=== PATIENT | female | born 1950 | race Caucasian/White ===

== ENCOUNTER 2016-09-23 20:35 | Emergency (ER) | payer MEDICARE, MEDICAID ==
[~2016-09-23 20:35] MED LIST: APRI0.372 PO; ASPI81CH CHEW; GABA600T PO; LISI-519 PO; LORA-392 PO; MELA1TAB18 PO; MELO-1 PO; METF500T PO; METO50TA PO; MULTTAB67 PO; OMEGCAP PO; OMEP10CA PO; PRAV40TA2 PO; PREG25 PO; TRAM50TA PO; TRAZ50TA12 PO; VENTAER INH; ZOLO50TA PO
[2016-09-23 20:42] VITALS: BP 137/73; PULSE 64; RESP 18; TEMP 98.1; O2SAT 94
--- NOTE | 2016-09-23 21:19 | PD ---
HPI Chief Complaint: Psychiatric Symptoms Time Seen by Provider: 21:07 Travel History International Travel<30 days: No Contact w/Intl Traveler<30days: No Traveled to known affect area: No History of Present Illness HPI 66-year-old female was Deleon acted and brought in to [facility] for psychiatric evaluation. Patient states that she has been depressed and voicing suicidal ideation. Patient was medically cleared for psychiatric evaluation and transfer to [place] to see psychiatrist. Patient has history hypertension, diabetes, hyperlipidemia. Patient status post CVA with left-sided weakness. PFSH Past Medical History Asthma: Yes Anxiety: Yes Depression: Yes Cardiovascular Problems: Yes (CAD, HTN) High Cholesterol: Yes COPD: Yes Cerebrovascular Accident: Yes (LEFT SIDE WEAKNESS) Coronary Artery Disease: Yes Diabetes: Yes Patient Takes Glucophage: Yes Tetanus Vaccination: Unknown Influenza Vaccination: No Menopausal: Yes Tubal Ligation: Yes Past Surgical History Cholecystectomy: Yes Neurologic Surgery: Yes (ENDARTECTOMY) Social History Alcohol Use: No Tobacco Use: No Substance Use: No Allergies-Medications (Allergen,Severity, Reaction): Coded Allergies: Sulfa (Verified Allergy, Severe, Swelling, 09/23/16) Tetanus Toxoid (Verified Allergy, Severe, Swelling, 09/23/16) Reported Meds & Prescriptions Reported Meds & Active Scripts Active Reported Trazodone (Trazodone HCl) 50 Mg Tab 50 Mg PO HS Ventolin Hfa 18 GM Inh (Albuterol Sulfate) 90 Mcg/Act Aer 2 Puff INH Q4-6H PRN Tramadol (Tramadol HCl) 50 Mg Tab 50 Mg PO Q6H PRN Apriso (Mesalamine) 0.375 Gm Caper 1.5 Gm PO DAILY Melatonin 10 Mg Tab 10 Mg PO HS PRN Gabapentin 600 Mg Tab 600 Mg PO TID [place]-3 Fish Oil/Vitamin (Fish Oil-Cholecalciferol) 1,000-1,000 Mg Cap 1 Cap PO DAILY Omeprazole 10 Mg Cap 30 Mg PO DAILY Ativan (Lorazepam) 0.5 Mg Tab 0.5 Mg PO BID Metoprolol Tartrate 50 Mg Tab 50 Mg PO BID Meloxicam 15 Mg Tab 15 Mg PO DAILY Metformin (Metformin HCl) 500 Mg Tab 500 Mg PO TIDPC With meals Pravastatin 40 Mg Tab 40 Mg PO DAILY Zoloft (Sertraline HCl) 50 Mg Tab 50 Mg PO BID Aspirin 81 Mg Chew 81 Mg CHEW DAILY Multiple Vitamin 1 Tab 1 Tab PO DAILY Lisinopril 5 Mg Tab 5 Mg PO DAILY Lyrica (Pregabalin) 25 Mg Cap 25 Mg PO BID Review of Systems General / Constitutional: No: Fever Eyes: No: Visual changes HENT: No: Headaches Cardiovascular: No: Chest Pain or Discomfort Respiratory: No: Shortness of Breath Gastrointestinal: No: Abdominal Pain Genitourinary: No: Dysuria Musculoskeletal: No: Pain Skin: No Rash Neurologic: No: Weakness Psychiatric: No: Depression Endocrine: No: Polydipsia Hematologic/Lymphatic: No: Easy Bruising Physical Exam Narrative GENERAL: Well-nourished, well-developed patient. SKIN: Focused skin assessment warm/dry. HEAD: Normocephalic. EYES: No scleral icterus. No injection or drainage. NECK: Supple, trachea midline. No JVD or lymphadenopathy. CARDIOVASCULAR: Regular rate and rhythm without murmurs, gallops, or rubs. RESPIRATORY: Breath sounds equal bilaterally. No accessory muscle use. GASTROINTESTINAL: Abdomen soft, non-tender, nondistended. MUSCULOSKELETAL: No cyanosis, or edema. BACK: Nontender without obvious deformity. No CVA tenderness. Neurologic exam: Patient has left-sided paralysis of the upper extremity with weakness of the left leg. Data Data Last Documented VS Vital Signs Date Time Temp Pulse Resp B/P Pulse Ox O2 Delivery O2 Flow Rate FiO2 09/23/16 20:42 98.1 64 18 137/73 94 Orders Psych Screen (09/23/16 22:27) [facility] Medical Decision Making Medical Screen Exam Complete: Yes Emergency Medical Condition: Yes Differential Diagnosis Differential diagnosis including depression, suicidal. Narrative Course Patient was Deleon acted or depression and voicing suicidal ideation and awaiting psychiatric evaluation. Patient is medically cleared. John Vásquez MD Sep 23, 2016 21:19
[2016-09-24 07:30] VITALS: BP 130/59; PULSE 77; RESP 16; O2SAT 97
[2016-09-24] MEDS ORDERED: MELOXICAM 7.5 MG TAB PO ONE (07:45)
[2016-09-24] MEDS ORDERED: traMADol HCL 50 MG TAB PO ONE (07:45)
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
[2016-09-24] MEDS ORDERED: LISINOPRIL 5 MG TAB PO ONE (11:15)
[2016-09-24] MEDS ORDERED: PREGABALIN 25 MG CAP PO ONE (11:15)
[2016-09-24] MEDS ORDERED: SERTRALINE HCL 50 MG TAB PO ONE (11:15)
[2016-09-24] MEDS ORDERED: METOPROLOL TARTRATE 25 MG TAB PO ONE (11:15)
[2016-09-24] MEDS ORDERED: GABAPENTIN 300 MG CAP PO ONE (11:15)
[2016-09-24] MEDS ORDERED: LORazepam 0.5 MG TAB PO ONE (11:15)
[2016-09-24 11:20] VITALS: BP 140/70; PULSE 77; RESP 16; O2SAT 97
== END 2016-09-24 15:26 | disposition home or self-care (01) ==
LOC: NEPD 20:35
DX: F43.25 Adjustment disorder with mixed disturbance of emotions and conduct (principal); I69.354 Hemiplegia and hemiparesis following cerebral infarction affecting left non-dominant side; I25.10 Atherosclerotic heart disease of native coronary artery without angina pectoris; E78.5 Hyperlipidemia, unspecified; E11.9 Type 2 diabetes mellitus without complications; Z79.84 Long term (current) use of oral hypoglycemic drugs; Z79.899 Other long term (current) drug therapy
CPT/HCPCS: 80053; 81001; 84443; 84484; 85025; 87086; 99284; 99285

== ENCOUNTER 2017-01-29 15:03 | Inpatient (IN) | payer OTHER, MEDICAID, MEDICARE ==
[~2017-01-29] VITALS: Ht 154.9 cm; Wt 52.3 kg
[~2017-01-29 15:03] MED LIST changes: +ASPI-516 CHEW; -ASPI81CH CHEW; -MELO-1 PO; +MELO15TA20 PO
[2017-01-29 15:27] VITALS: BP 145/85; PULSE 81; RESP 16; TEMP 97.9; O2SAT 97
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
[2017-01-29 17:28] LABS: AUTOMATED NEUTROPHIL # 2.3 TH/MM3 (1.8-7.7); BASOPHIL % 0.4 % (0.0-2.0); EOSINOPHIL # 0.1 TH/MM3 (0-0.4); EOSINOPHIL % 2.5 % (0.0-4.0); HEMATOCRIT 38.2 % (35.0-46.0); HEMO FLAGS DIFF FINAL; LYMPH % 21.1 % (9.0-44.0); LYMPHOCYTE # 0.8 TH/MM3 (1.0-4.8); MEAN CELL VOLUME 86.4 FL (80.0-100.0); MEAN CORPUSCULAR HEMOGLOBIN 27.4 PG (27.0-34.0); MEAN CORPUSCULAR HGB CONC 31.7 % (32.0-36.0); MONO % 10.9 % (0.0-8.0); NEUT % 65.1 % (16.0-70.0); PLATELET COUNT 164 TH/MM3 (150-450); RED BLOOD COUNT 4.42 MIL/MM3 (4.00-5.30); RED CELL DISTRIBUTION WIDTH 16.9 % (11.6-17.2); WHITE BLOOD COUNT 3.6 TH/MM3 (4.0-11.0)
[2017-01-29 17:45] LABS: ANION GAP 6 MEQ/L (5-15); AST (GOT) 22 U/L (15-37); BICARBONATE 26.3 MEQ/L (21.0-32.0); BLOOD UREA NITROGEN 9 MG/DL (7-18); CHLORIDE 108 MEQ/L (98-107); GLOMERULAR FILTRATION RATE 89 ML/MIN (>89); POTASSIUM 3.8 MEQ/L (3.5-5.1); SODIUM (NA) 140 MEQ/L (136-145)
[2017-01-29 17:48] LABS: ACETAMINOPHEN LESS THAN 2.0 MCG/ML (10.0-30.0); ALKALINE PHOSPHATASE 72 U/L (45-117); ALT (GPT) 23 U/L (10-53); TOTAL BILIRUBIN ADULT 0.3 MG/DL (0.2-1.0)
[2017-01-29 17:50] LABS: ALCOHOL LESS THAN 3 MG/DL (0-5)
[2017-01-29 19:00] VITALS: BP_SYST 149; BP_DIAS 61; BP_DIAS 78; PULSE 78; RESP 18; TEMP 97.8; O2SAT 97
[2017-01-29] MEDS ORDERED: DULO1CAP PO (20:37)
[2017-01-29] MEDS ORDERED: BUPR100T4 PO (20:37)
[2017-01-29] MEDS ORDERED: OMEP40CA2 PO (20:37)
[2017-01-29] MEDS ORDERED: HYDR-3516 PO (21:31)
[2017-01-29] MEDS ORDERED: diphenhydrAMINE HCL 50 MG CAP PO ONE (22:15)
[2017-01-29] MEDS ORDERED: NAPROXEN 375 MG TAB PO ONE (22:15)
[2017-01-29 22:29] VITALS: BP 101/69; PULSE 77; RESP 18; O2SAT 98
[2017-01-30 06:09] VITALS: BP 125/60; PULSE 64; RESP 18; O2SAT 98
[2017-01-30] MEDS ORDERED: ACETAMINOPHEN 325 MG TAB PO PRN (10:15)
[2017-01-30] MEDS ORDERED: LORazepam 2 MG/ML VIAL IM PRN (10:15)
[2017-01-30] MEDS ORDERED: ALUMINUM/MAGNESIUM/SIMETH 30 ML CUP PO PRN (10:15)
[2017-01-30] MEDS ORDERED: MAGNESIUM HYDROXIDE SUSP 30 ML CUP PO PRN (10:15)
[2017-01-30] MEDS ORDERED: ALBUTEROL SULFATE 90 MCG/ACT HFA 8 GM INHALER INH PRN (10:30)
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
[2017-01-30 11:07] VITALS: BP 113/67; PULSE 82; RESP 18; O2SAT 97
[2017-01-30] MEDS: GABAPENTIN 300 MG CAP PO SCH ×2 (13:00→18:00)
[2017-01-30] MEDS: metFORMIN HCL 500 MG TAB PO SCH ×2 (13:30→18:04)
[2017-01-30] MEDS: LORazepam 1 MG TAB PO PRN ×2 (14:22→20:48)
[2017-01-30 15:09] VITALS: BP 150/65; PULSE 76; RESP 16; O2SAT 97
--- NOTE | 2017-01-30 15:17 | PD.CONS ---
[facility] Request[facility] By [facility] Care Physician Unknown Diagnoses: History of Present Illness History from patient, nursing staff, and review of medical records. Patient is a very pleasant lady who is aware of her medical conditions. However she stated most of the time, her daughter gives her medications. She is not aware of the names and doses of her medications. She is admitted to psychiatry service. With multiple family dynamics and DCF is being involved per nursing staff. had nausea stomach ache mid abdomen when i got to eat, it hurts, and i dont want to eat lost about 40lbs had these pains for about 6 months havent gotten to pcp anymore- Dr Perdomo - because has had trouble getting around to doc appointment and now see [employer] from home doc had colonoscopy about 6 yrs ago, and was normal except for colitis no acid refulx never had egd left side paralysis of "wherever my saliva go down" and reports of choking episodes from saliva or food no black or red stool, no change in caliber of stool c/o of left sided pains- stated chronic usually if she sits too long in wheel chair was in ER too long and pain started worsening falls al lot last fall was about 3 weeks ago broke ankle on right side then- but did not require surgery- was told hairline fx Review of Systems Except as stated in HPI: all other systems reviewed are Neg Past Family Social History Allergies: Coded Allergies: Sulfa (Sulfonamide Antibiotics) (Verified Allergy, Severe, Swelling, 01/29) tetanus toxoid, adsorbed (Verified Allergy, Severe, Swelling, 01/29/17) Past Medical History htn dm asthma as a child overactive bladder 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 , 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 hx of colitis- had colonoscopy at [facility] previously Past Surgical History cholecystectomy- about 6 yrs ago carpel tunnel x 3 tubal ligation - 38yrs ago Family History alziemers dementia- mother and her brother manic depressive- mother Social History quit smoking 6yrs ago no etoh abuse no drugs lives with daughter- and her boyfriend and kids Physical Exam Vital Signs Vital Signs Date Time Temp Pulse Resp B/P (MAP) Pulse Ox O2 Delivery O2 Flow Rate FiO2 01/30/17 12:52 01/30/17 11:07 82 18 113/67 (82) 97 Room Air 01/30/17 06:09 64 18 125/60 (81) 98 Room Air 01/29/17 22:29 77 18 101/69 (80) 98 01/29/17 19:00 97.8 78 18 149/61 (90) 97 Room Air 01/29/17 15:27 97.9 81 16 145/85 (105) 97 Physical Exam GENERAL: This is a well-nourished, well-developed patient, in no apparent distress. Complaining of pain in her left upper extremity SKIN: No rashes, ecchymoses or lesions. Cool and dry. HEAD: Atraumatic. Normocephalic. No temporal or scalp tenderness. EYES: No scleral icterus. No injection or drainage. ENT: Nose without bleeding, purulent drainage or septal hematoma. Airway patent. NECK: Trachea midline. No JVDSupple, nontender, no meningeal signs. CARDIOVASCULAR: Regular rate and rhythm without murmurs, gallops, or rubs. RESPIRATORY: Clear to auscultation. Breath sounds equal bilaterally. No wheezes , rales, or rhonchi. GASTROINTESTINAL: Abdomen soft, non-tender, nondistended. No guarding. MUSCULOSKELETAL: Extremities without clubbing, cyanosis, or edema. No calf tenderness. NEUROLOGICAL: Awake and alert. Left upper extremity and left lower extremity contracture. Our about 1 out of 5. Normal speech. Laboratory Laboratory Tests Test 01/29/17 16:30 White Blood Count 3.6 Red Blood Count 4.42 Hemoglobin 12.1 Hematocrit 38.2 Mean Corpuscular Volume 86.4 Mean Corpuscular Hemoglobin 27.4 Mean Corpuscular Hemoglobin Concent 31.7 Red Cell Distribution Width 16.9 Platelet Count 164 Mean Platelet Volume 9.3 Neutrophils (%) (Auto) 65.1 Lymphocytes (%) (Auto) 21.1 Monocytes (%) (Auto) 10.9 Eosinophils (%) (Auto) 2.5 Basophils (%) (Auto) 0.4 Neutrophils # (Auto) 2.3 Lymphocytes # (Auto) 0.8 Monocytes # (Auto) 0.4 Eosinophils # (Auto) 0.1 Basophils # (Auto) 0.0 CBC Comment DIFF FINAL Differential Comment Blood Urea Nitrogen 9 Creatinine 0.66 Random Glucose 80 Total Protein 6.9 Albumin 3.4 Calcium Level 8.8 Alkaline Phosphatase 72 Aspartate Amino Transf (AST/SGOT) 22 Alanine Aminotransferase (ALT/SGPT) 23 Total Bilirubin 0.3 Sodium Level 140 Potassium Level 3.8 Chloride Level 108 Carbon Dioxide Level 26.3 Anion Gap 6 Estimat Glomerular Filtration Rate 89 Salicylates Level LESS THAN 1.7 Urine Opiates Screen NEG Acetaminophen Level LESS THAN 2.0 Urine Barbiturates Screen NEG Urine Amphetamines Screen NEG Urine Benzodiazepines Screen POS Urine Cocaine Screen NEG Urine Cannabinoids Screen NEG Ethyl Alcohol Level LESS THAN 3 Result Diagram: 01/29/17 1630 01/29/17 1630 Assessment and Plan Assessment and Plan Impression: depression . Management per psychiatry. Multiple family dynamics with DCF involvement. possible esophageal strictures from history . However patient is quite upset at present with family dynamics and unclear whether her symptoms are related to this. Will need to question her again on this. 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 At present, patient is quite upset from family dynamics and her left shoulder and lower extremity pain because she was not receiving any adequate pain meds while in ER. She does follow up with Home Docs and has a PA who comes to her house. She is also recommended to follow up with urology as an outpatient for urodynamic studies. Will not start any medications since patient has multiple medications on her list. Case management for possible [facility] placement. Patient has multiple family issues and DCF is involved. Home meds have been resumed DVT prophylaxis with Lovenox. Discharge Planning per psychiatry Discussed Condition With Patient, nursing staff Josephine Arguello MD Jan 30, 2017 15:17
[2017-01-30] MEDS ORDERED: DEXTROSE 50% IN WATER 50 ML VIAL(D50) IV PUSH PRN (15:30)
[2017-01-30] MEDS ORDERED: GLUCAGON 1 MG/ML VIAL OTHER PRN (15:30)
[2017-01-30] MEDS: ACETAMINOPHEN/HYDROcodone 325 MG/5 MG TAB PO PRN (15:41)
[2017-01-30] MEDS: INSULIN ASPART SUPPLEMENTAL SCALE SQ SCH ×2 (17:00→20:48)
[2017-01-30] MEDS: MESALAMINE HD 800 MG DELAYED RELEASE TAB PO SCH (18:00)
[2017-01-30] MEDS: METOPROLOL TARTRATE 50 MG TAB PO SCH (20:48)
[2017-01-30] MEDS: traZODone HCL 50 MG TAB PO PRN (20:48)
[2017-01-31 06:25] VITALS: BP 118/66; PULSE 67; RESP 16; TEMP 97.5; O2SAT 94
[2017-01-31] MEDS: INSULIN ASPART SUPPLEMENTAL SCALE SQ SCH ×4 (08:00→21:00)
[2017-01-31] MEDS: ASPIRIN 81 MG CHEW TAB CHEW SCH (08:12)
[2017-01-31] MEDS: MELOXICAM 15 MG TAB PO SCH (08:12)
[2017-01-31] MEDS: PANTOPRAZOLE SOD 40 MG DELAYED RELEASE TAB PO SCH (08:12)
[2017-01-31] MEDS: GABAPENTIN 300 MG CAP PO SCH ×3 (08:12→18:23)
[2017-01-31] MEDS: LISINOPRIL 5 MG TAB PO SCH (08:12)
[2017-01-31] MEDS: DULoxetine HCl DR 20 MG CAP PO SCH (08:12)
[2017-01-31] MEDS: METOPROLOL TARTRATE 50 MG TAB PO SCH ×2 (08:12→21:14)
[2017-01-31] MEDS: PRAVASTATIN SOD 40 MG TAB PO SCH (08:12)
[2017-01-31] MEDS: metFORMIN HCL 500 MG TAB PO SCH ×3 (08:12→18:23)
[2017-01-31] MEDS: MULTIVITAMIN TAB PO SCH (08:12)
[2017-01-31] MEDS: traMADol HCL 50 MG TAB PO PRN ×3 (08:13→21:13)
[2017-01-31] MEDS: MESALAMINE HD 800 MG DELAYED RELEASE TAB PO SCH ×3 (08:13→18:00)
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
[2017-01-31 11:04] LABS: BLOOD, URINE NEG (NEG); GLUCOSE,URINE NEG (NEG); KETONE, URINE NEG (NEG); NITRITE,URINE NEG (NEG); URINE COLOR YELLOW (YELLW/STRAW)
[2017-01-31 11:07] LABS: COMMENT (UR) CULT NOT INDICATED; CULTURE IF INDICATED CULT NOT INDICATED
[2017-01-31 11:22] LABS: AUTOMATED NEUTROPHIL # 1.2 TH/MM3 (1.8-7.7); BASOPHIL % 0.4 % (0.0-2.0); EOSINOPHIL # 0.1 TH/MM3 (0-0.4); EOSINOPHIL % 4.5 % (0.0-4.0); HEMATOCRIT 36.8 % (35.0-46.0); HEMO FLAGS DIFF FINAL; LYMPHOCYTE # 0.6 TH/MM3 (1.0-4.8); MEAN CELL VOLUME 83.6 FL (80.0-100.0); MEAN CORPUSCULAR HEMOGLOBIN 26.6 PG (27.0-34.0); MEAN CORPUSCULAR HGB CONC 31.8 % (32.0-36.0); MONO % 11.7 % (0.0-8.0); NEUT % 56.4 % (16.0-70.0); PLATELET COUNT 156 TH/MM3 (150-450); RED CELL DISTRIBUTION WIDTH 16.6 % (11.6-17.2); WHITE BLOOD COUNT 2.1 TH/MM3 (4.0-11.0)
[2017-01-31 11:33] LABS: ANION GAP 8 MEQ/L (5-15); BICARBONATE 29.4 MEQ/L (21.0-32.0); BLOOD UREA NITROGEN 12 MG/DL (7-18); CHLORIDE 108 MEQ/L (98-107); POTASSIUM 4.1 MEQ/L (3.5-5.1); SODIUM (NA) 145 MEQ/L (136-145)
[2017-01-31 11:59] LABS: ALKALINE PHOSPHATASE 64 U/L (45-117); ALT (GPT) 20 U/L (10-53); AST (GOT) 20 U/L (15-37); GLOMERULAR FILTRATION RATE 75 ML/MIN (>89); HDL CHOLESTEROL 40.7 MG/DL (40.0-60.0); LDL CHOLESTEROL 32 MG/DL (0-99); TOTAL BILIRUBIN ADULT 0.2 MG/DL (0.2-1.0)
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
--- NOTE | 2017-01-31 13:37 | EKG ---
Date Performed: 01/31/2017 Time Performed: 07:20:13 PTAGE: 66 years EKG: Sinus rhythm LOW QRS VOLTAGE IN PRECORDIAL LEADS INFERIOR MYOCARDIAL INFARCTION , PROBABLY OLD ABNORMAL ECG NO PREVIOUS TRACING DOCTOR: Tavares Rubio Interpretating Date/Time 01/31/2017 13:36:04
[2017-01-31 14:36] LABS: HEMOGLOBIN A1a 1.5 %; HEMOGLOBIN Ao 84.7 %; HEMOGLOBIN LA1C 2.2 %; HEMOGLOBIN P3 3.6 %
[2017-01-31 18:37] VITALS: BP 130/64; PULSE 74; RESP 16; TEMP 97.2; O2SAT 97
[2017-01-31] MEDS: traZODone HCL 50 MG TAB PO PRN (21:13)
[2017-01-31] MEDS: LORazepam 1 MG TAB PO PRN (21:14)
[2017-02-01 05:44] VITALS: BP 121/59; PULSE 64; RESP 16; TEMP 97.6; O2SAT 97
[2017-02-01] MEDS: INSULIN ASPART SUPPLEMENTAL SCALE SQ SCH ×4 (08:00→21:00)
[2017-02-01] MEDS: ASPIRIN 81 MG CHEW TAB CHEW SCH (08:15)
[2017-02-01] MEDS: ENOXAPARIN SODIUM 40 MG/0.4 ML SYRINGE SQ SCH (08:16)
[2017-02-01] MEDS: LISINOPRIL 5 MG TAB PO SCH (08:16)
[2017-02-01] MEDS: METOPROLOL TARTRATE 50 MG TAB PO SCH ×2 (08:16→21:23)
[2017-02-01] MEDS: GABAPENTIN 300 MG CAP PO SCH ×3 (08:16→17:39)
[2017-02-01] MEDS: PANTOPRAZOLE SOD 40 MG DELAYED RELEASE TAB PO SCH (08:16)
[2017-02-01] MEDS: MELOXICAM 15 MG TAB PO SCH (08:16)
[2017-02-01] MEDS: PRAVASTATIN SOD 40 MG TAB PO SCH (08:17)
[2017-02-01] MEDS: MULTIVITAMIN TAB PO SCH (08:17)
[2017-02-01] MEDS: DULoxetine HCl DR 20 MG CAP PO SCH (08:17)
[2017-02-01] MEDS: MESALAMINE HD 800 MG DELAYED RELEASE TAB PO SCH ×3 (08:17→17:40)
[2017-02-01] MEDS: metFORMIN HCL 500 MG TAB PO SCH ×3 (08:19→17:40)
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
--- NOTE | 2017-02-01 10:28 | HHI.PYPN ---
Subjective Remarks Patient seen for follow-up, chart reviewed. Discussion nursing staff reported the patient would be slightly tearful this morning. Patient found lying in hospital bed, cooperative but also noted to be tearful throughout interview today. Patient states that she is feeling "tired" continues to report feeling depressed with no having thoughts of hurting herself or thoughts of suicide. She states that she is feeling very worried and stressed that returning to live with her daughter is stressful environment stating that "she is mean to me". Patient states that she has just in use to have ruminations about her stressors , continues to have decreased appetite and concentration. Patient states that she will try to attended group today to distract herself from her stressors. Review of Systems Except as stated in HPI: all other systems reviewed are Neg Mental Status Examination Appearance: Appropriate Consciousness: Alert Orientation: x4 Motor Activity: Other Speech: Unremarkable Language: Adequate Fund of Knowledge: Adequate Attention and Concentration: Easily Distracted Memory: Unremarkable Mood: Angry, Sad Affect: Sad, Other (tearful throughout interview) Thought Process & Associations: Intact, Linear Thought Content: Appropriate Hallucination Type: None Delusion Type: None Suicidal Ideation: Yes Suicidal Plan: No Suicidal Intention: No Homicidal Ideation: No Homicidal Plan: No Homicidal Intention: No Insight: Fair Judgment: Impulsive Results Labs Labs reviewed Test 01/31/17 10:42 01/31/17 10:56 Urine Color YELLOW Urine Turbidity CLEAR Urine pH 6.0 Urine Specific [place] 1.014 Urine Protein NEG mg/dL Urine Glucose (UA) NEG mg/dL Urine Ketones NEG mg/dL Urine Occult Blood NEG Urine Nitrite NEG Urine Bilirubin NEG Urine Urobilinogen LESS THAN 2.0 MG/DL Urine Leukocyte Esterase NEG Microscopic Urinalysis Comment CULT NOT INDICATED White Blood Count 2.1 TH/MM3 Red Blood Count 4.40 MIL/MM3 Hemoglobin 11.7 GM/DL Hematocrit 36.8 % Mean Corpuscular Volume 83.6 FL Mean Corpuscular Hemoglobin 26.6 PG Mean Corpuscular Hemoglobin Concent 31.8 % Red Cell Distribution Width 16.6 % Platelet Count 156 TH/MM3 Mean Platelet Volume 9.0 FL Neutrophils (%) (Auto) 56.4 % Lymphocytes (%) (Auto) 27.0 % Monocytes (%) (Auto) 11.7 % Eosinophils (%) (Auto) 4.5 % Basophils (%) (Auto) 0.4 % Neutrophils # (Auto) 1.2 TH/MM3 Lymphocytes # (Auto) 0.6 TH/MM3 Monocytes # (Auto) 0.2 TH/MM3 Eosinophils # (Auto) 0.1 TH/MM3 Basophils # (Auto) 0.0 TH/MM3 CBC Comment DIFF FINAL Differential Comment Blood Urea Nitrogen 12 MG/DL Creatinine 0.77 MG/DL Random Glucose 77 MG/DL Total Protein 6.6 GM/DL Albumin 3.2 GM/DL Calcium Level 8.7 MG/DL Alkaline Phosphatase 64 U/L Aspartate Amino Transf (AST/SGOT) 20 U/L Alanine Aminotransferase (ALT/SGPT) 20 U/L Total Bilirubin 0.2 MG/DL Sodium Level 145 MEQ/L Potassium Level 4.1 MEQ/L Chloride Level 108 MEQ/L Carbon Dioxide Level 29.4 MEQ/L Anion Gap 8 MEQ/L Estimat Glomerular Filtration Rate 75 ML/MIN Hemoglobin A1c 5.6 % Triglycerides Level 83 MG/DL Cholesterol Level 89 MG/DL LDL Cholesterol 32 MG/DL HDL Cholesterol 40.7 MG/DL Cholesterol/HDL Ratio 2.18 RATIO Vitamin B12 Level 517 PG/ML 25-Hydroxy Vitamin D Total 26.4 ng/ML Thyroid Stimulating Hormone 3rd Gen 0.840 uIU/ML Vitals/IOs Vital Signs Date Time Temp Pulse Resp B/P (MAP) Pulse Ox O2 Delivery O2 Flow Rate FiO2 02/01/17 05:44 97.6 64 16 121/59 (79) 97 01/30/17 11:07 Room Air Intake and Output 02/01/17 02/01/17 02/02/17 08:00 16:00 00:00 Intake Total 540 ml Balance 540 ml Assessment & Plan Problem List: (1) Adjustment disorder with depressed mood ICD Codes: F43.21 - Adjustment disorder with depressed mood Assessment & Plan Patient continues to report feeling depressed noted to be tearful throughout interview, continues to have poor appetite and concentration along with ruminations stressors. Patient denies any thoughts of self-harm or suicidal ideations at this time. We'll add mirtazapine 7.5 mg at bedtime as an adjunct to antidepressant treatments as well as assist with sleep disturbance and decreased appetite. Continue rest of medications. Continue recommendations as per primary medical team. Continue physical therapy. Discharge planning in progress Justification for Cont. Inpt. At risk for further decompensation if at lower level of care Discharge Planning Patient possibly return back home with her daughter with alcohol services in place or referred to an assisted living facility. Dirk Spence MD Feb 01, 2017 10:28
[2017-02-01] MEDS ORDERED: PILL SPLITTER OTHER PRN (10:30)
[2017-02-01] MEDS: traMADol HCL 50 MG TAB PO PRN (10:30)
[2017-02-01 18:00] VITALS: BP 123/57; PULSE 63; RESP 16; TEMP 97.5; O2SAT 95
[2017-02-01 20:00] VITALS: BP 164/80; PULSE 71; RESP 18; TEMP 97.5; O2SAT 96
[2017-02-01] MEDS: LORazepam 1 MG TAB PO PRN (21:24)
[2017-02-01] MEDS: MIRTAZAPINE 15 MG TAB PO SCH (21:24)
[2017-02-02 06:25] VITALS: BP 140/63; PULSE 59; RESP 16; TEMP 96.4; O2SAT 99
[2017-02-02] MEDS: INSULIN ASPART SUPPLEMENTAL SCALE SQ SCH ×4 (08:00→20:20)
--- NOTE | 2017-02-02 08:28 | HHI.PYPN ---
Subjective Remarks Patient seen in her room lying in her bed, patient is seen with nurse. Chart reviewed. Patient compliant medications. Patient remains quite sad and depressed though she does denies suicidality today. Sensory is some issues related to placement with this lady. For now continue treatment Review of Systems Except as stated in HPI: all other systems reviewed are Neg Mental Status Examination Appearance: Appropriate Consciousness: Alert Orientation: x4 Motor Activity: Other Speech: Unremarkable Language: Adequate Fund of Knowledge: Adequate Attention and Concentration: Easily Distracted Memory: Unremarkable Mood: Angry, Sad Affect: Sad, Other (tearful throughout interview) Thought Process & Associations: Intact, Linear Thought Content: Appropriate Hallucination Type: None Delusion Type: None Suicidal Ideation: Yes Suicidal Plan: No Suicidal Intention: No Homicidal Ideation: No Homicidal Plan: No Homicidal Intention: No Insight: Fair Judgment: Impulsive Results Vitals/IOs Vital Signs Date Time Temp Pulse Resp B/P (MAP) Pulse Ox O2 Delivery O2 Flow Rate FiO2 02/02/17 06:25 96.4 59 16 140/63 (88) 99 01/30/17 11:07 Room Air Intake and Output 02/02/17 02/02/17 02/03/17 08:00 16:00 00:00 Intake Total 0 ml Balance 0 ml Assessment & Plan Problem List: (1) Adjustment disorder with depressed mood ICD Codes: F43.21 - Adjustment disorder with depressed mood Assessment & Plan Estimated LOS: days patient continues depressed though today denying suicidality. She still shows marked decreased range intensity of her affect. For now continue treatment Justification for Cont. Inpt. At this time patient will decompensate if placed in a lower level of care Discharge Planning Patient showing some ambivalence about returning to her prior living situation Sae Randall MD Feb 02, 2017 08:28
[2017-02-02] MEDS: MESALAMINE HD 800 MG DELAYED RELEASE TAB PO SCH ×3 (09:00→18:25)
[2017-02-02] MEDS: METOPROLOL TARTRATE 50 MG TAB PO SCH ×2 (09:00→20:26)
[2017-02-02] MEDS: GABAPENTIN 300 MG CAP PO SCH ×3 (09:25→18:25)
[2017-02-02] MEDS: MELOXICAM 15 MG TAB PO SCH (09:25)
[2017-02-02] MEDS: PANTOPRAZOLE SOD 40 MG DELAYED RELEASE TAB PO SCH (09:26)
[2017-02-02] MEDS: DULoxetine HCl DR 20 MG CAP PO SCH (09:26)
[2017-02-02] MEDS: MULTIVITAMIN TAB PO SCH (09:27)
[2017-02-02] MEDS: LISINOPRIL 5 MG TAB PO SCH (09:27)
[2017-02-02] MEDS: PRAVASTATIN SOD 40 MG TAB PO SCH (09:27)
[2017-02-02] MEDS: ASPIRIN 81 MG CHEW TAB CHEW SCH (09:28)
[2017-02-02] MEDS: metFORMIN HCL 500 MG TAB PO SCH ×3 (09:28→18:25)
[2017-02-02] MEDS: ENOXAPARIN SODIUM 40 MG/0.4 ML SYRINGE SQ SCH (09:34)
--- NOTE | 2017-02-02 09:36 | HHI.PR ---
Subjective Remarks New complaints today. States she has to urinate a lot. Denies any burning on urination. Urinalysis was negative for urinary tract infection Seen with RN 02-02 no new complaints today. States that that is uncomfortable. Still appears quite depressed to me Seen with RN and an tendons Objective Vitals Vital Signs Date Time Temp Pulse Resp B/P (MAP) Pulse Ox O2 Delivery O2 Flow Rate FiO2 02/02/17 06:25 96.4 59 16 140/63 (88) 99 02/01/17 20:00 97.5 71 18 164/80 (108) 96 02/01/17 18:00 97.5 63 16 123/57 (79) 95 I/O 02/01/17 02/01/17 02/01/17 02/02/17 02/02/17 02/02/17 07:00 15:00 23:00 07:00 15:00 23:00 Intake Total 60 ml 840 ml 1330 ml 0 ml Balance 60 ml 840 ml 1330 ml 0 ml Intake Oral 60 ml 840 ml 1330 ml 0 ml # Voids 2 1 2 # Bowel Movements 1 Result Diagram: 01/31/17 1056 01/31/17 1056 Other Results Laboratory Tests Test 01/31/17 10:42 01/31/17 10:56 Urine Color YELLOW Urine Turbidity CLEAR Urine pH 6.0 Urine Specific [place] 1.014 Urine Protein NEG mg/dL Urine Glucose (UA) NEG mg/dL Urine Ketones NEG mg/dL Urine Occult Blood NEG Urine Nitrite NEG Urine Bilirubin NEG Urine Urobilinogen LESS THAN 2.0 MG/DL Urine Leukocyte Esterase NEG Microscopic Urinalysis Comment CULT NOT INDICATED White Blood Count 2.1 TH/MM3 Red Blood Count 4.40 MIL/MM3 Hemoglobin 11.7 GM/DL Hematocrit 36.8 % Mean Corpuscular Volume 83.6 FL Mean Corpuscular Hemoglobin 26.6 PG Mean Corpuscular Hemoglobin Concent 31.8 % Red Cell Distribution Width 16.6 % Platelet Count 156 TH/MM3 Mean Platelet Volume 9.0 FL Neutrophils (%) (Auto) 56.4 % Lymphocytes (%) (Auto) 27.0 % Monocytes (%) (Auto) 11.7 % Eosinophils (%) (Auto) 4.5 % Basophils (%) (Auto) 0.4 % Neutrophils # (Auto) 1.2 TH/MM3 Lymphocytes # (Auto) 0.6 TH/MM3 Monocytes # (Auto) 0.2 TH/MM3 Eosinophils # (Auto) 0.1 TH/MM3 Basophils # (Auto) 0.0 TH/MM3 CBC Comment DIFF FINAL Differential Comment Blood Urea Nitrogen 12 MG/DL Creatinine 0.77 MG/DL Random Glucose 77 MG/DL Total Protein 6.6 GM/DL Albumin 3.2 GM/DL Calcium Level 8.7 MG/DL Alkaline Phosphatase 64 U/L Aspartate Amino Transf (AST/SGOT) 20 U/L Alanine Aminotransferase (ALT/SGPT) 20 U/L Total Bilirubin 0.2 MG/DL Sodium Level 145 MEQ/L Potassium Level 4.1 MEQ/L Chloride Level 108 MEQ/L Carbon Dioxide Level 29.4 MEQ/L Anion Gap 8 MEQ/L Estimat Glomerular Filtration Rate 75 ML/MIN Hemoglobin A1c 5.6 % Triglycerides Level 83 MG/DL Cholesterol Level 89 MG/DL LDL Cholesterol 32 MG/DL HDL Cholesterol 40.7 MG/DL Cholesterol/HDL Ratio 2.18 RATIO Vitamin B12 Level 517 PG/ML 25-Hydroxy Vitamin D Total 26.4 ng/ML Thyroid Stimulating Hormone 3rd Gen 0.840 uIU/ML Objective Remarks GENERAL: Awake alert oriented talkative and cooperative appears in no acute distress SKIN: Warm and dry. HEAD: Atraumatic. Normocephalic. EYES: Pupils equal and round. No scleral icterus. No injection or drainage. Extraocular muscles intact wearing glasses ENT: No nasal bleeding or discharge. Mucous membranes pink and moist. Tongue is midline NECK: Trachea midline. No JVD. Supple CARDIOVASCULAR: Regular rate and rhythm. S1 and S2 no S3 or S4 RESPIRATORY: No accessory muscle use. Clear to auscultation. Breath sounds equal bilaterally. GASTROINTESTINAL: Abdomen soft, non-tender, nondistended. Hepatic and splenic margins not palpable. MUSCULOSKELETAL: Extremities without clubbing, cyanosis, or edema. No obvious deformities. NEUROLOGICAL: Awake and alert. No obvious cranial nerve deficits. Motor grossly within normal limits. Five out of 5 muscle strength in the arms and legs. Normal speech. PSYCHIATRIC: inAppropriate mood and affect; insight and judgment abnormal. Procedures None Medications and IVs Current Medications Naproxen (Naprosyn) 375 mg ONCE ONCE PO Last administered on 01/29/17t 22:15 ; Start 01/29/17 at 22:15; Stop 01/29/17 at 22:16; Status DC Diphenhydramine HCl (Benadryl) 50 mg ONCE ONCE PO Last administered on 22:15; Start 01/29/17 at 22:15; Stop 01/29/17 at 22:16; Status DC Lorazepam (Ativan) 1 mg Q6H PRN PO MODERATE TO SEVERE ANXIETY Last administered on 02/01/17 21:24; Start 01/30/17 at 10:15 Lorazepam (Ativan Inj) 1 mg Q6H PRN IM MODERATE TO SEVERE ANXIETY; Start 01/30 at 10:15 Acetaminophen (Tylenol) 650 mg Q4H PRN PO PAIN 1-2, Temp >101F; Start at 10:15 Magnesium Hydroxide (Milk Of Magnesia Liq) 30 ml DAILY PRN PO CONSTIPATION; Start 01/30/17 at 10:15 Al Hydrox/Mg Hydrox/Simethicone (Mag-Al Plus Susp Liq) 30 ml Q6H PRN PO DYSPEPSIA Last administered on 02/01/17 17:43; Start 01/30/17 at 10:15 Trazodone HCl (Desyrel) 50 mg HS PRN PO INSOMNIA Last administered on 21:13; Start 01/30/17 at 10:15 Albuterol Sulfate (Proair Hfa Inh) 2 puff Q4HR PRN INH SHORTNESS OF BREATH; Start 01/30/17 at 10:30 Aspirin (Aspirin Chew) 81 mg DAILY CHEW Last administered on 02/01/17 08:15; Start 01/31/17 at 09:00 Duloxetine HCl (Cymbalta Dr) 20 mg DAILY PO Last administered on 02/01/17 08: 17; Start 01/31/17 at 09:00 Gabapentin (Neurontin) 600 mg TID PO Last administered on 02/01/17 17:39; Start 01/30/17 at 13:00 Acetaminophen/ Hydrocodone Bitart ([place] 5-325 Mg) 1 tab Q6H PRN PO PAIN 5-10 Last administered on 01/30/17 15:41; Start 01/30/17 at 10:30 Lisinopril (Prinivil) 5 mg DAILY PO Last administered on 02/01/17 08:16; Start 01/31/17 at 09:00 Meloxicam (Mobic) 15 mg DAILY PO Last administered on 02/01/17 08:16; Start 01/31/17 at 09:00 Metformin HCl (Glucophage) 500 mg TIDPC PO Last administered on 02/01/17 17: 40; Start 01/30/17 at 13:30 Metoprolol Tartrate (Lopressor) 50 mg BID PO Last administered on 02/01/17 21 :23; Start 01/30/17 at 21:00 Pravastatin Sodium (Pravachol) 40 mg DAILY PO Last administered on 02/01/17 08:17; Start 01/31/17 at 09:00 Tramadol HCl (Ultram) 50 mg Q6H PRN PO PAIN 3-5 Last administered on 10:30; Start 01/30/17 at 10:30 Mesalamine (Asacol Hd Dr) 1,600 mg TID PO Last administered on 02/01/17 17:40 ; Start 01/30/17 at 18:00 Multivitamins (Theragran) 1 tab DAILY PO Last administered on 02/01/17 08:17 ; Start 01/31/17 at 09:00 Pantoprazole Sodium (Protonix) 40 mg DAILY PO Last administered on 02/01/17 08:16; Start 01/31/17 at 09:00 Dextrose (D50w (Vial) Inj) 50 ml UNSCH PRN IV PUSH HYPOGLYCEMIA-SEE COMMENTS; Start 01/30/17 at 15:30 Glucagon (Glucagon Inj) 1 mg UNSCH PRN OTHER HYPOGLYCEMIA-SEE COMMENTS; Start 01/30/17 at 15:30 Insulin Aspart (NovoLOG SUPPLEMENTAL SCALE) 1 ACHS SLIDING SCALE SQ ; Start at 17:00 Enoxaparin Sodium (Lovenox Inj) 40 mg Q24H SQ Last administered on 02/01/17 08:16; Start 02/01/17 at 09:00 Mirtazapine (Remeron) 7.5 mg HS PO Last administered on 02/01/17 21:24; Start 02/01/17 at 21:00 Miscellaneous (Pill Splitter) 1 ea UNSCH PRN OTHER SEE LABEL COMMENTS; Start 02/01/17 at 10:30 A/P Assessment and Plan Impression: possible esophageal strictures from history patient refuses any workup here overactive bladder- outpatient urodynamic studies; but would check UA htn stable dm sugars are being monitored asthma as a child overactive bladder 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 She can be referred to GI service as an outpatient since she is not willing to undergo any further studies here. We'll check UA. She is also recommended to follow up with urology as an outpatient for urodynamic studies. Will not start any medications at this time PT/OT. Case management for possible [facility] placement. Patient has multiple family issues and DCF is involved. Home meds have been resumed DVT prophylaxis with Lovenox. We'll see her intermittently if no other issues last Discharge Planning Pending psychiatric clearance and case management ability to find safe place for discharge Migel Funez DO Feb 02, 2017 09:36
[2017-02-02] MEDS: ACETAMINOPHEN/HYDROcodone 325 MG/5 MG TAB PO PRN ×2 (10:21→15:57)
[2017-02-02 18:31] VITALS: BP 107/52; PULSE 71; RESP 16; TEMP 97.7; O2SAT 96
[2017-02-02] MEDS: MIRTAZAPINE 15 MG TAB PO SCH (20:26)
[2017-02-02] MEDS: traZODone HCL 50 MG TAB PO PRN (20:26)
[2017-02-02] MEDS: traMADol HCL 50 MG TAB PO PRN (20:26)
[2017-02-03 06:12] VITALS: BP 94/49; PULSE 61; RESP 16; TEMP 97.7; O2SAT 96
[2017-02-03] MEDS: ACETAMINOPHEN/HYDROcodone 325 MG/5 MG TAB PO PRN ×2 (06:28→13:29)
[2017-02-03 06:36] VITALS: BP 104/54
[2017-02-03] MEDS: INSULIN ASPART SUPPLEMENTAL SCALE SQ SCH ×2 (07:10→12:00)
--- NOTE | 2017-02-03 08:34 | HHI.PYPN ---
Subjective Remarks Patient seen in her room with nurse Annabel, chart review, patient compliant medications. She somewhat more alert this morning she no she is in [facility] that she is in [facility] and that tomorrow's chrysalis. She states she wants to go home to be with her 3-year-old twin granddaughters for crispness. She denies suicidality voices or visions. I subsequently talked to patient's daughter at [phone]. Patient daughter continues to have concerns about her behavior and impulsivity and at times irritability with her daughter. Daughter is doubts about her returning home at this time though she will confer the and states she will get back to me. For now continue treatment Review of Systems Except as stated in HPI: all other systems reviewed are Neg Mental Status Examination Appearance: Appropriate Consciousness: Alert Orientation: x4 Motor Activity: Other Speech: Unremarkable Language: Adequate Fund of Knowledge: Adequate Attention and Concentration: Easily Distracted Memory: Unremarkable Mood: Angry, Sad Affect: Sad, Other (tearful throughout interview) Thought Process & Associations: Intact, Linear Thought Content: Appropriate Hallucination Type: None Delusion Type: None Suicidal Ideation: Yes Suicidal Plan: No Suicidal Intention: No Homicidal Ideation: No Homicidal Plan: No Homicidal Intention: No Insight: Fair Judgment: Impulsive Results Vitals/IOs Vital Signs Date Time Temp Pulse Resp B/P (MAP) Pulse Ox O2 Delivery O2 Flow Rate FiO2 02/03/17 07:28 16 02/03/17 06:36 104/54 (71) 02/03/17 06:12 97.7 61 96 01/30/17 11:07 Room Air Intake and Output 02/03/17 02/03/17 02/04/17 08:00 16:00 00:00 Intake Total 120 ml Balance 120 ml Assessment & Plan Problem List: (1) Adjustment disorder with depressed mood ICD Codes: F43.21 - Adjustment disorder with depressed mood Assessment & Plan Estimated LOS: days patient somewhat better, mood improving orientation seems to be somewhat improved also. After conversation with daughter and appears her still some hesitation to have her return to the home. Daughter states she will return my call if she talks with her Justification for Cont. Inpt. This time patient decompensate if the placed an appropriate level of care Discharge Planning Hopefully to return home with family Sae Randall MD Feb 03, 2017 08:34
[2017-02-03] MEDS: LISINOPRIL 5 MG TAB PO SCH (09:00)
[2017-02-03] MEDS: METOPROLOL TARTRATE 50 MG TAB PO SCH (09:00)
[2017-02-03] MEDS: metFORMIN HCL 500 MG TAB PO SCH ×2 (09:08→13:29)
[2017-02-03] MEDS: PRAVASTATIN SOD 40 MG TAB PO SCH (09:08)
[2017-02-03] MEDS: GABAPENTIN 300 MG CAP PO SCH ×2 (09:09→13:29)
[2017-02-03] MEDS: ASPIRIN 81 MG CHEW TAB CHEW SCH (09:09)
[2017-02-03] MEDS: MULTIVITAMIN TAB PO SCH (09:09)
[2017-02-03] MEDS: MELOXICAM 15 MG TAB PO SCH (09:09)
[2017-02-03 09:10] VITALS: BP 104/52; PULSE 67
[2017-02-03] MEDS: MESALAMINE HD 800 MG DELAYED RELEASE TAB PO SCH ×2 (09:10→13:00)
[2017-02-03] MEDS: DULoxetine HCl DR 20 MG CAP PO SCH (09:10)
[2017-02-03] MEDS: PANTOPRAZOLE SOD 40 MG DELAYED RELEASE TAB PO SCH (09:10)
[2017-02-03] MEDS: ENOXAPARIN SODIUM 40 MG/0.4 ML SYRINGE SQ SCH (09:11)
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
[2017-02-03] MEDS ORDERED: ALUMINUM/MAGNESIUM/SIMETH 30 ML CUP PO PRN (10:45)
[2017-02-03] MEDS ORDERED: BISMUTH SUBSALICYLATE 240 ML BTL PO PRN (10:45)
[2017-02-03] MEDS ORDERED: APRI0.372 PO (13:43)
[2017-02-03] MEDS ORDERED: DULO1CAP PO (13:43)
[2017-02-03] MEDS ORDERED: VENTAER INH (13:43)
[2017-02-03] MEDS ORDERED: GABA600T PO (13:43)
[2017-02-03] MEDS ORDERED: METO50TA PO (13:43)
[2017-02-03] MEDS ORDERED: LISI-519 PO (13:43)
[2017-02-03] MEDS ORDERED: METF500T PO (13:43)
[2017-02-03] MEDS ORDERED: PRAV40TA2 PO (13:43)
[2017-02-03] MEDS ORDERED: MIRTA15 PO (13:43)
[2017-02-03] MEDS ORDERED: TRAZ50TA12 PO ×2 (13:43)
[2017-02-03] MEDS ORDERED: MELO15TA20 PO (13:43)
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
[2017-02-03 14:14] VITALS: RESP 17
== END 2017-02-03 15:20 | disposition home or self-care (01) | DRG 881 ==
LOC: NEPD 15:03 → NEDA 01-30 10:16 → H4EA 01-30 13:32
PROVIDERS: ADMIT Student in an Organized Health Care Education/Training Program; ATTEND Student in an Organized Health Care Education/Training Program
DX: F43.21 Adjustment disorder with depressed mood (principal); I69.354 Hemiplegia and hemiparesis following cerebral infarction affecting left non-dominant side; R45.851 Suicidal ideations; J44.9 Chronic obstructive pulmonary disease, unspecified; I10 Essential (primary) hypertension; I25.10 Atherosclerotic heart disease of native coronary artery without angina pectoris; E78.00 Pure hypercholesterolemia, unspecified; E11.9 Type 2 diabetes mellitus without complications; R63.0 Anorexia; R29.6 Repeated falls; N32.81 Overactive bladder; Z62.820 Parent-biological child conflict; Z63.8 Other specified problems related to primary support group; Z79.84 Long term (current) use of oral hypoglycemic drugs; Z87.891 Personal history of nicotine dependence; Z88.2 Allergy status to sulfonamides; Z88.7 Allergy status to serum and vaccine; Z91.5 Personal history of self-harm; Z91.81 History of falling; Z99.3 Dependence on wheelchair
CPT/HCPCS: 80053; 80061; 80307; 81001; 82306; 82607; 82948; 83036; 84443; 85025; 93005; J1650; Q0163